=== PATIENT | female | born 1960 | race Caucasian/White ===

== ENCOUNTER 2017-06-24 08:58 | Emergency (ER) | payer SELFPAY ==
[~2017-06-24] VITALS: Ht 152.4 cm; Wt 61.2 kg
[~2017-06-24 08:58] MED LIST: TRAM50 PO
[2017-06-24] MEDS ORDERED: PROP10 (09:27)
[2017-06-24] MEDS ORDERED: METHAMAZOLE (09:28)
[2017-06-24] MEDS ORDERED: Mobic7.5 MG PO (10:09)
== END 2017-06-24 10:32 | disposition home or self-care (01) ==
LOC: ER 08:58
DX: S46.002A Unspecified injury of muscle(s) and tendon(s) of the rotator cuff of left shoulder, initial encounter (principal); Z88.0 Allergy status to penicillin; Z87.891 Personal history of nicotine dependence; X58.XXXA Exposure to other specified factors, initial encounter; Y93.B3 Activity, free weights
CPT/HCPCS: 96372; 99283; J1885